=== PATIENT | male | born 1990 | race Caucasian/White ===

== ENCOUNTER 2022-12-03 10:30 | Outpatient (RCR) | payer MEDICAID, SELFPAY | END 2023-04-02 23:59 | disposition home or self-care (01) | PROVIDERS: Visit Provider Podiatrist | DX: M25.572 Pain in left ankle and joints of left foot (principal); R26.2 Difficulty in walking, not elsewhere classified; Z51.89 Encounter for other specified aftercare; S86.012D Strain of left Achilles tendon, subsequent encounter | CPT/HCPCS: 97110; 97112; 97140; 97161 ==

== ENCOUNTER 2025-05-31 14:23 | Outpatient (CLI) | payer MEDICAID, SELFPAY | END 2025-05-31 14:24 | disposition home or self-care (01) | LOC: AMB 06-04 17:09 | PROVIDERS: PCP Family Medicine; Visit Provider Emergency Medicine | DX: M54.9 Dorsalgia, unspecified (principal) | CPT/HCPCS: A0425; A0426 ==

== ENCOUNTER 2025-05-31 14:59 | Emergency (ER) | payer MEDICAID, SELFPAY ==
[2025-05-31 15:05] VITALS: BP 134/96; PULSE 104; RESP 16; TEMP 37.6; O2SAT 95; BMI 31.2
[2025-05-31 15:12] VITALS: PULSE 101; O2SAT 94
--- OUTSIDE RECORDS SUMMARY | 2025-05-31 15:12 | XMS_ITS | Clinical Summary ---
Author Organization [facility] Address [address] [place] [id number] Care Team Providers Care Superintendent Recreation Name Role Phone Zeke Snowden MD Primary Care Provider Allergies No known active allergies Medications No known medications Active Problems Problem Noted Date Diagnosed Date Subacromial impingement of left shoulder 024 Tendinitis of long head of biceps 03/10/2024 Traumatic complete tear of left rotator cuff Tear of left glenoid labrum 03/10/2024 Achilles tendon rupture, left, initial encounter Encounters Date Type Department Care Team Description 05/23/2025 10:46 AM PAYROLL TAX ANALYST - 05/23/2025 11:59 PM PAYROLL TAX ANALYST Hospital Encounter [facility] [address] [place] [address] Zeke Snowden MD Rein, Erik, PT Acute pain of left shoulder 05/23/2025 Travel 05/21/2025 3:20 PM PAYROLL TAX ANALYST Office Visit [facility] [address] [place] [address] Zeke Snowden MD Shoulder Pain/problem (Left shoulder x 1.5 months ) 05/20/2025 Travel from Last 3 Months Immunizations Immunization Administration Dates Next Due Adenovirus Type 4 and 7 05/10/2015 Hepatitis A (Adult) 12/12/2015,12/11/2015,2014 Hepatitis B (Adult) 03/01/2003,11/16/2002,2002 Inactivated Polio Vaccine 05/10/2015 Influenza, IIV3 (Age >=3 years) 05/05/2017,05/10 Influenza, IIV4 06/02/2016 MMR, Unspecified 06/18/2015,05/10/2015 Meningococcal Vaccine (Menactra) 05/10/2015 Td (Age >=7 Years) 07/21/2002 Tdap, Unspecified 05/10/2015 Family History Medical History Relation Name Comments Good Health Father Cancer-colon Maternal Grandfather Diabetes Maternal Grandfather Good Health Mother Good Health Sister 1 Good Health Sister 2 Relation Name Status Comments Father Alive Maternal Grandfather Mother Alive Sister 1 Alive Sister 2 Alive Social History Tobacco Use Types Packs/Day Years Used Date Smoking Tobacco: Never Smokeless Tobacco: Never Tobacco Cessation:Counseling Given: Yes Alcohol Use Standard Drinks/Week Comments Yes 0 (1 standard drink = 0.6 oz pur e alcohol) rarely once / month PHQ-2 Answer Date Recorded PHQ-2 TOTAL SCORE 0 05/21/2025 Social Connections Answer Date Recorded Do you often feel lonely or isolated from those around you? 0 05/20/2025 Financial Resource Strain Answer Date R ecorded Difficulty of Paying Living Expenses 3 05/20/2025 Difficulty of Paying Living Expenses Not on file 05/20/2025 Food Insecurity Answer Date Recorded Do you worry your food will run out before you are able to buy more? 1 05/20/2025 Transportation Needs Answer Date Record ed Does lack of transportation keep you from medica l appointments? 1 05/20/2025 Does lack of transportation keep you from work, meetings or getting things that you need? 1 05/20/2025 Housing Stability Answer Date Recorded What is your housing situation today? 1 05/20/2025 Utilities Answer Date Recorded Do you have trouble paying f or utilities (for example, heat, electricity, water, phone)? 1 05/20/2025 Sex and Gender Information Value Date Recorded Sex Assigned at Male 02/21/2024 8:04 AM CDT Legal Sex Male 7:18 AM PAYROLL TAX ANALYST Gender Identity Male 02/21/2024 8:04 AM CDT Sexual Orientation Straight 02/21/2024 8: 04 AM CDT Occupation Industry Job Start Date Job End Date [employer] Not on file Not on file Not on file Obstetrics History Last Filed Vital Signs Vital Sign Reading Time Taken Comments Blood Pressure 122/78 05/21/2025 3:32 PM PAYROLL TAX ANALYST Pulse 80 05/21/2025 3:32 PM PAYROLL TAX ANALYST Temperature 36.6 C (97.8 F) 04/19/2024 8:46 AM CDT Respiratory Rate 16 04/05/2024 3:45 PM CDT Oxygen Saturation 98% 04/19/2024 8:46 AM CDT Inhaled Oxygen Concentration - - Weight 93.9 kg (207 lb) 05/21/2025 3:32 PM PAYROLL TAX ANALYST Height 172.7 cm (5' 8) 05/21/2025 3:32 PM PAYROLL TAX ANALYST Body Mass Index 31.47 05/21/2025 3:32 PM PAYROLL TAX ANALYST Plan of Treatment Upcoming Encounters Date Type Department Care Team (Late st Contact Info) Description 06/12/2025 3:15 PM PAYROLL TAX ANALYST Appointment [address] [address] Cynthia Rider V, NEEDLE POLISHER [address] [place] [address] 06/22/2025 3:00 PM PAYROLL TAX ANALYST Appointment [address] [address] Reji Clayton, PT [address] [place] [address] 06/29/2025 3:00 PM PAYROLL TAX ANALYST Appointment [address] [address] Reji Clayton, PT [address] [place] [address] 07/03/2025 3:15 PM PAYROLL TAX ANALYST Appointment [address] [address] Cynthia Rider V, NEEDLE POLISHER [address] [place] [address] 07/10/2025 3:45 PM PAYROLL TAX ANALYST Appointment [address] [place] [address] Reji Clayton, PT [address] [facility] [place] [address] 07/18/2025 3:45 PM PAYROLL TAX ANALYST Appointment [address] [address] Reji Clayton, PT [address] [facility] [place] [address] 07/25/2025 3:45 PM PAYROLL TAX ANALYST Appointment [address] [address] Reji Clayton, PT [address] [facility] [place] [address] Health Maintenance Due Date Last Done Comments HIV for age 15-65 2005 Hepatitis C screening for age 18-79 02/27/2008 HPV series for age 9-45 (1 - 3-dose SCDM series) 2017 Lipids for age 35-44 2025 Influenza Vaccine (#1) 2025 7, 06/02/2016, 05/10/2015 Tetanus booster 05/10/2025 05/10/2015, 07/21/2002 BMI (ht and wt on same day) for age 18+ 05/21/2026 05/21/2025, 09/05/2024, 02/08/2024, Additional history exists Depression screening for age 12+ 05/21/2026 05/21/2025 RSV vaccine for adults or (1 - 1-dose 75+ series) 2065 Hepatitis B series for 19+ Completed 03/01, 11/16/2002, 07/21/2002 Pneumococcal series for age 6-49 Aged Out No longer eligible based on patient's age to complete this topic Medical Devices Implanted Type Area Nurse First Assist Device Identifier Shelf Expiration Date Model / Serial / Lot Implant System, Pars Suture Tape Implanted:Qty: 1 on 08/24/2022 by Sivakumar Ariza DPM at [facility] Left: Ankle [employer] 06/10/2027 AR-8862D S / / [id number] Fhl Implant System, 6.25 Mm Implanted:Qty: 1 on 08/24/2022 by Sivakumar Ariza DPM at [facility] Left: Ankle [employer] 03/11/2025 AR-[id number] C- CP / / [id number] Implant System, Achilles Midsubstance Speedbridge Implanted:Qty: 1 on 08/24/2022 by Sivakumar Ariza DPM at [facility] Left: Ankle [employer] 05/11/2026 / AR-8929BC- CP / [id number] Kit Implnt Dx Knotless Fibertak - [id number] Implanted:Qty: 1 on 03/06/2024 by Sivakumar Ariza DPM at [facility] Right: Ankle [employer] 06/10/2028 AR-8991 CP / / [id number] Kit Implnt Biocomposite Cc Ft W/Jumpstart Internalbrace - [id number] Implanted:Qty: 1 on 03/06/2024 by Sivakumar Ariza DPM at [facility] Right: Ankle [employer] 03/11/2025 AR-1788 J-C P / / [id number] Ancr Sut 4.75x19.1mm Biocomp Swivelock C Vented Closed Wht-B - [id number] Implanted:Qty: 1 on 03/06/2024 by Sivakumar Ariza DPM at [facility] Right: Ankle [employer] 05/11/2027 AR-2324 BCC TT / / [id number] Sys Ancr Sut 4.75mm Biocomposite - [id number] Implanted:Qty: 1 on 04/05/2024 by Chad Stevens MD at [facility] Left: Shoulder [employer] 09/09/2027 AR-1665KBC SL / / [id number] 2.6 Fiber [place] Rc Implanted:Qty: 2 on 04/05/2024 by Chad Stevens MD at [facility] Left: Shoulder [employer] 12/09/2028 AR-3652TTS P / / [id number] Description:Second Lot Juan R r: [id number] 4.75mm Biocomposite Knotless Swivelock [place] Implanted:Qty: 1 on 04/05/2024 by Chad Stevens MD at [facility] Left: Shoulder [employer] 01/09/2028 AR-2324KBC SP / / [id number] Insurance [address] [place] [place] [phone] [facility] Advance Directives * Full Code (Latest Code Status on File) Date Activated Date Inactivated Comments 04/05/2024 6:27 AM 04/05/2024 6:04 PM Question Answer Comments Code Status Discussion: Unable to Assess Preferences, Provider to review later * Full Code Date Activated Date Inactivated Comments 03/06/2024 6:31 AM 03/06/2024 2:45 PM Question Answer Comments Code Status Discussion: Reviewed Preferences * Full Code Date Activated Date Inactivated Comments 08/24/2022 9:24 AM 08/24/2022 7:23 PM Question Answer Comments Code Status Discussion: Reviewed Preferences Care Teams Superintendent Recreation Relationship Specialty Start Date End Date Zeke Snowden MD [address] [place] [address] PCP - General Family Practice 05/21/25
[2025-05-31 15:15] VITALS: PULSE 101; O2SAT 95
--- NOTE | 2025-05-31 15:26 | CRLHL7_ITS ---
For Patients: As a result of the Century Cures Act, medical imaging exams and procedure reports are released immediately into your electronic medical record. You may view this report before your referring provider. If you have questions, please contact your health care provider. INDICATION: Right upper back pain COMPARISON: None. TECHNIQUE: Three view thoracic spine radiographs including AP, lateral, lateral cervicothoracic swimmer`s view. FINDINGS: There are 12 normally formed thoracic vertebral bodies. No fracture. 16 degrees levocurvature from the upper to midthoracic spine. 7 degrees dextrocurvature of the mid to lower thoracic spine. Straightening of the normal thoracic kyphosis. No listhesis. No disc space narrowing. No facet arthritis. Normal bone mineralization. No focal bone lesions. Paraspinal soft tissues are unremarkable. IMPRESSION: Thoracic scoliosis. No acute findings. Dictated by Maryana Bailey MD @ 05/31/2025 3:54:40 PM (Electronically Signed)
[2025-05-31 15:30] VITALS: PULSE 104; O2SAT 96
[2025-05-31 15:31] VITALS: BP 134/102; PULSE 102; O2SAT 96
[2025-05-31 15:32] VITALS: PULSE 103; O2SAT 96
--- NOTE | 2025-05-31 16:13 | ED.BACK ---
HPI - Back Pain/Injury General Date Seen: 05/31/25 Chief Complaint: Back Injury/Pain Stated Complaint: back pain Time Seen by Provider: 05/31/25 15:00 Source: patient Mode of arrival: ambulatory Limitations: no limitations History of Present Illness HPI Narrative: Patient is a 35-year-old male presenting to the emergency department for back pain. He states earlier today while at work he was lifting a shower glass door. He felt a pull in his right upper back. 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 Was adjusted there and pain persisted. He went back to work and said he could lift anything and dropped to his knees so he went home. He tried taking his 's Flexeril and states symptoms do not improve. Due to this he called his who was not home and she called 911. Via EMS he got 150 mcg of fentanyl, 2 mg of morphine, 100 mg of Tylenol. He states he was able urinate prior to coming to the emergency department and felt like he emptied his bladder. Denies any numbness of his legs. Denies chest pain, shortness of breath, abdominal pain. No other injuries noted. States he had back pain similar to this several years ago but it was not this bad. Related Data Home Medications ?Medication ?Instructions ?Recorded ?Confirmed No Known Home Medications 05/31/25 05/31/25 Allergies Allergy/AdvReac Type Severity Reaction Status Date / Time No Known Drug Allergies Allergy Verified 05/31/25 15:05 Review of Systems Narrative: Pertinent systems reviewed and were negative unless stated in HPI PFSH PFS Social History Smoking Status: Never smoker How often do you have a drink containing alcohol: never AUDIT-C Alcohol total score: 0 Non-prescribed substance use: denies use service: Yes Exam Narrative: Exam Narrative: Const: Well-nourished, Well-developed, in moderate distress Eyes: PERRL, no conjunctival injection, and symmetrical lids HENT: Atraumatic external nose and ears. Moist mucous membranes. MSK:Extremities w/o deformity, Normal Active ROM, no midline spinal tenderness. Tenderness noted just medial to the scapula around rib 4. Has a pinpoint area of tenderness Skin: Warm, Dry. No rashes or lesions. Neuro: Normal Muscle tone, No focal neurological deficits. Psych: Awake, Alert, & Oriented x3. Appropriate mood and affect. Const: Vital Signs, click to edit/add: Vital Signs - 24 hr 05/31/25 15:05 05/31/25 15:12 05/31/25 15:15 Temperature 99.6 F Pulse Rate 101 H 101 H Pulse Rate [Pulse Oximeter] 104 H Respiratory Rate 16 Blood Pressure Blood Pressure [Ri ght Upper Arm] 134/96 H Pulse Oximetry 95 94 95 Oxygen Delivery Me thod Room Air 05/31/25 15:30 05/31/25 15:31 Temperature Pulse Rate 104 H 102 H Pulse Rate [Pulse Oximeter] Respiratory Rate Blood Pressure 134/102 H Blood Pressure [Ri ght Upper Arm] Pulse Oximetry 96 96 Oxygen Delivery Me thod Course Vital Signs Vital signs: Initial Vital Signs Temperature 99.6 F 05/31/25 15:05 Temperature Source Oral 05/31/25 15:05 Pulse Rate 104 H 05/31/25 15:05 Pulse Rhythm Regular 05/31/25 15:05 Pulse Strength 3+ Normal 05/31/25 15:05 Respiratory Rate 16 05/31/25 15:05 Blood Pressure 134/96 H 05/31/25 15:05 Blood Pressure Mean 108 H 05/31/25 15:05 Blood Pressure Position Sitting 05/31/25 15:05 Pulse Oximetry 95 05/31/25 15:05 Oxygen Delivery Method Room Air 05/31/25 15:05 Vital Signs Temperature 99.6 F 05/31/25 15:05 Pulse Rate 104 H 05/31/25 15:05 Respiratory Rate 16 05/31/25 15:05 Blood Pressure 134/96 H 05/31/25 15:05 Pulse Oximetry 95 05/31/25 15:05 Oxygen Delivery Method Room Air 05/31/25 15:05 Temperature 99.6 F 05/31/25 15:05 Pulse Rate 102 H 05/31/25 15:31 Respiratory Rate 16 05/31/25 15:05 Blood Pressure 134/102 H 05/31/25 15:31 Pulse Oximetry 96 05/31/25 15:31 Oxygen Delivery Method Room Air 05/31/25 15:05 Medications Administered Medications: Discontinued Medications Generic Name Dose Route Start Last Admin Trade Name Freq PRN Reason Stop Dose Admin Ketorolac Tromethamine 15 mg 05/31/25 15:26 05/31/25 16:04 Ketorolac 15 Mg/Ml Inj IVP 05/31/25 15:27 15 mg ONCE ONE Administration MDM - Back Pain/Injury MDM Narrative Medical decision making narrative: Patient is a 35-year-old male presenting to the emergency department for back pain. Pain seems most likely muscular in nature considering the location of the pain. Seems unlikely to be from a herniated disc. His he was lifting something with occurred and he was at work will do an x-ray to make sure there were no acute fractures. Did given Toradol for pain as he already had an IV. He states he is feeling better after the Toradol. He feels comfortable for discharge. I will give him oxycodone, flexeril, and Toradol via instymeds. He is agreeable to this plan. Diagnosis is muscle strain Imaging Data Thoracic spine x-ray: Attestation: I have reviewed the pertinent imaging results. Radiologist's impression: Thoracic scoliosis. No acute findings. Dictated by Maryana Bailey MD @ 05/31/2025 3:54:40 PM Discharge Plan Discharge Clinical Impression: Strain of thoracic region Qualifiers: Encounter type: initial encounter Qualified Code(s): S29.019A - Strain of muscle and tendon of unspecified wall of thorax, initial encounter Patient Disposition: Home, Self-Care Condition: Improved Instructions: Muscle Strain (ED) Additional Instructions: I believe your pain is from a strain of your thoracic musculature. Take Tylenol as needed for pain. Can also take Toradol. If that does not help use the oxycodone and Flexeril. These were all prescribed via instymeds. While using Toradol do not take other NSAIDs such as naproxen or ibuprofen at the the same class of drugs. You can take Tylenol. Return to emergency department for new or worsening symptoms. Prescriptions: No Action No Known Home Medications Follow Up/Referrals: Zeke Snowden MD [Primary Care Provider, Family Practice] Stand Alone Forms: [employer] Info Instructions
== END 2025-05-31 17:01 | disposition home or self-care (01) ==
PROVIDERS: Emergency Provider Student in an Organized Health Care Education/Training Program; PCP Family Medicine
DX: S29.012A Strain of muscle and tendon of back wall of thorax, initial encounter (principal); X50.0XXA Overexertion from strenuous movement or load, initial encounter
CPT/HCPCS: 72072; 96374; 99283; J1885